=== PATIENT | female | born 1980 | race Caucasian/White ===

== ENCOUNTER → 2023-07-23 10:00 | Outpatient (REF) | payer OTHER, SELFPAY | LOC: EMG 10:00 | PROVIDERS: ATTENDING PHYSICIAN Orthopaedic Surgery; FAMILY PHYSICIAN Family Medicine | DX: R20.0 Anesthesia of skin (principal) | CPT/HCPCS: 95886; 95911 ==

== ENCOUNTER 2023-07-27 18:14 | Emergency (ER) | payer OTHER, SELFPAY ==
[2023-07-27 18:24] VITALS: BP 120/80
--- NOTE | 2023-07-27 18:49 | ED.GENMED ---
History of Present Illness
General
Chief Complaint: Musculo-Skeletal Complaint
Time Seen by Provider: 07/27/23 18:49
Travel History
Have you had any contact with someone who has COVID-19?: No
Do you have any symptoms of coronavirus? Fever > 100 degrees, chills, cough, shortness of breath, sore throat, loss of taste or smell, muscle aches, or headache?: No
History of Present Illness
History of Present Illness:
42-year-old female presents the emergency department for evaluation of progressive worsening right hand pain and numbness radiating to the mid forearm. She was treated as an outpatient with multiple courses of steroids which did improve symptoms
however due to worsening she followed up with hand surgery, has underwent MRI of her cervical spine which does show 'C5-C6 moderate disc osteophyte complex with a central disc protrusion causing flattening of the ventral spinal cord and overall
moderate central canal narrowing, C4-5 small right central disc protrusion effacing the ventral thecal sac and causing mild narrowing of the right aspect of the central canal, and a C6-C7 small central disc protrusion causing mild central canal
narrowing'. She underwent an MRI of the right hand today and does not yet have these results. She has been taking hydrocodone without pain relief. Additionally she underwent a nerve conduction study 4 days ago which showed minimal carpal tunnel
but was not felt to be an adequate explanation for her pain
Past History
Past History
ED Past Medical History: Other (Plasminogen activator inhibitor deficiency disorder, previous rhinoplasty with heavy bleeding)
Social History
Tobacco: Non-smoker
Alcohol: None
Family History
Family History: Negative Diabetes, Hypertension or CAD
Review of Systems
Review of Systems
Allergies reviewed?: Yes
All Other Systems: ROS reviewed and negative except as documented in HPI and ROS
Phy Exam
Physical Exam
Physical Exam:
GEN: Well appearing, NAD, WDWN
HEENT: Oral mucosa moist, no scleral icterus
Cardiac: Regular rate
Lung: No respiratory distress, no tachypnea
MSK: No gross deformity or injuries. Limited right wrist range of motion secondary to pain
Skin: Good color, no pallor or jaundice, no rashes
Neuro: AO x3, moves all extremities freely
Psych: Calm, cooperative
Course
Orders/Labs/Results
Orders:
Orders
07/27/23 19:03
Gabapentin [Neurontin] 300 mg PO NOW STA
Ketorolac [Toradol] 30 mg IM NOW STA
Oxycodone [Roxicodone] 5 mg PO NOW STA
Vital Signs
Initial and Last Documented VS:
Initial Vital Signs
Temp Pulse Resp BP Pulse Ox
98.3 F 112 20 120/80 98
07/27/23 18:24 07/27/23 18:24 07/27/23 18:24 07/27/23 18:24 07/27/23 18:24
Last Documented Vital Signs
Temp Pulse Resp BP Pulse Ox
98.3 F 112 20 120/80 98
07/27/23 18:24 07/27/23 18:24 07/27/23 18:24 07/27/23 18:24 07/27/23 18:24
MDM/Problems Addressed
MDM/Problems Addressed:
Patient's right hand MRI not resulted by [facility] just yet. I suspect her symptoms are due to cervical spine disease given her unremarkable EMG. Supportive care medications prescribed, encouraged ongoing orthopedic evaluation to discuss
any further treatment for the C-spine
*Critical Care Note
Total Time (30-74mins, 75-104mins- exclusive of procedures): Not Applicable
ED Attending Note
-
Portions of this chart may have been created with voice recognition software.� Occasional wrong word or��sound alike� substitutions may have occurred due to the inherent limitations of voice recognition software.
Discharge Plan
Departure
Patient Disposition: Home (Routine Discharge)
Date of Disposition: 07/27/23
Time of Disposition: 19:22
Patient with high blood pressure during this ER visit?: No
Discharge Problem:
Cervical radiculopathy
Instructions: Radiculopathy (DC)
Prescriptions:
New
gabapentin 300 mg capsule
300 mg PO TID Qty: 30 0RF
diclofenac sodium 75 mg tablet,delayed release (DR/EC)
75 mg PO BID PRN (Reason: Pain) Qty: 30 0RF
oxycodone 5 mg tablet
5 mg PO Q8H PRN (Reason: Pain) Qty: 8 0RF
Referrals:
Mayco Rodriges MD [Family Provider] -
Interventions
Interventions:
*Risk Screen - Suicide Last Done: 07/27/23 18:24
*General Assessment Last Done: 07/27/23 18:24
*Neglect/Abuse Screening Last Done: 07/27/23 18:56
ED- Fall Risk Assessment Last Done: 07/27/23 18:56
*Nursing Disposition Last Done: 07/27/23 19:34
ED-Musculoskeletal Assessment Last Done: 07/27/23 18:56
Discharge Date and Time
Discharge Date/Time: 07/27/23 19:35
[2023-07-27] MEDS: NEURONTIN 300 MG PO (19:20)
[2023-07-27] MEDS: ROXICODONE 5 MG PO (19:20)
[2023-07-27] MEDS: TORADOL 30 MG IM (19:22)
== END 2023-07-27 19:35 | disposition home or self-care (01) ==
LOC: EMR 18:14
PROVIDERS: EMERGENCY PHYSICIAN Emergency Medicine; FAMILY PHYSICIAN Family Medicine
DX: M54.12 Radiculopathy, cervical region (principal)
CPT/HCPCS: 99282

== ENCOUNTER 2023-07-28 05:33 | Emergency (ER) | payer OTHER, SELFPAY ==
[2023-07-28 05:36] VITALS: BP 130/96
--- NOTE | 2023-07-28 05:56 | EDRN ---
hands. Tonight she was on the toilet and her feet went numb and when she tried to get up she couldn't move. Pt was holding onto the towel rack and it broke and she hit her R side of her back on the tub and twisted her R ankle. No LOC. Pt has pain
management for fusion L4-S1. Pt tearful. Pt states that she can not take a deep breath in.
--- NOTE | 2023-07-28 07:15 | ED.GENMED ---
History of Present Illness
General
Chief Complaint: Musculo-Skeletal Complaint
Source: patient
Time Seen by Provider: 07/28/23 06:58
Travel History
Have you had any contact with someone who has COVID-19?: No
Do you have any symptoms of coronavirus? Fever > 100 degrees, chills, cough, shortness of breath, sore throat, loss of taste or smell, muscle aches, or headache?: No
History of Present Illness
History of Present Illness:
42-year-old female presenting to the emergency department for evaluation after she got up from her sleep around 3 AM to go to the bathroom, felt lightheaded and as if her bilateral lower extremities had tingling all over, she attempted to grab onto
a towel rack but this fell causing her to fall back into the corner of a tub injuring her right lateral ribs as well as her right ankle. Patient states that her right thoracic region is what is causing her the most pain. She notes associated right
upper extremity paresthesia and pain but that this is a chronic issue and she was here in this emergency department yesterday evening for that right upper extremity pain. Patient reportedly had an outpatient MRI done at [facility] which
showed complications at C5 and C6 as well as C4 and C5. Patient sees pain management for which she takes tramadol as well as hydrocodone. She states that she has not taken anything for pain since being in the emergency department last night.
There was no reported head injury, loss consciousness, vomiting, visual changes or any other concerns. Patient does note increased pain ambulating on her right ankle.
Past History
Past History
ED Past Medical History: Other (Plasminogen activator inhibitor deficiency disorder, previous rhinoplasty with heavy bleeding)
ED Past Surgical History: Other
Social History
Tobacco: Non-smoker
Alcohol: None
Drug: None
Personal: Single
Living: with family
Family History
Family History: Negative Diabetes, Hypertension or CAD
Review of Systems
Review of Systems
All Other Systems: ROS reviewed and negative except as documented in HPI and ROS
Phy Exam
Physical Exam
Physical Exam:
GENERAL: Alert , , Continuously wincing in pain, needs assistance with movement, appears uncomfortable
Head: Normocephalic atraumatic
EYE: conjunctiva clear
NECK: Supple
ENT: o/p clr, mmm.
CARDIAC: Regular rate and rhythm, No murmur
LUNGS: Clear breath sounds bilaterally, no acute respiratory distress, no wheezes/rales/rhonchi
Chest wall: Diffuse right-sided tenderness with no focality. There are no signs of trauma, ecchymosis, abrasions, lacerations or flail chest
NEUROLOGICAL: Alert and oriented
SKIN: Warm and dry, skin intact.
MUSCULOSKELETAL: Right lower extremity: No obvious deformity, erythema, edema, ecchymosis, abrasions or lacerations. Patient complaining of diffuse tenderness to the distal ankle. Calcaneal tendon without laxity. Easily palpable pedal and tibial
pulse. Cap refill less than 2 seconds. Sensation grossly intact to light touch.
PSYCH: Normal and appropriate interaction.
Scores
Heart Failure Risk
Heart Failure Risk Score: Not Applicable
Heart Score for Chest Pain Patients
STEMI patient?: Not applicable
Withdrawal Assessment of Alcohol
Withdrawal Assessment Completed?: Not applicable
Course
Orders/Labs/Results
Orders:
Orders
07/28/23 07:13
Ketorolac [Toradol] 60 mg IM NOW STA
Oxycodone [Roxicodone] 5 mg PO NOW STA
CR Ankle - Right Min 3 Views * Urgent
Comment:
Reason For Exam: fall, pain
CR Ribs-right 3 Vw W/pa Chest* Urgent
Comment:
Reason For Exam: fall, posterolateral rib injury
Vital Signs
Initial and Last Documented VS:
Initial Vital Signs
Temp Pulse Resp BP Pulse Ox
97.7 F 114 30 130/96 100
07/28/23 05:36 07/28/23 05:36 02/27/24 05:36 07/28/23 05:36 07/28/23 05:36
Last Documented Vital Signs
Temp Pulse Resp BP Pulse Ox
97.7 F 114 30 116/72 97
07/28/23 05:36 07/28/23 05:36 07/28/23 05:36 07/28/23 08:00 07/28/23 08:15
MDM/Problems Addressed
Differential Diagnosis Includes:
Rib fracture, rib contusion, pneumothorax, visceral injury, exacerbation of patient's chronic pain
MDM/Problems Addressed:
42-year-old female presenting emergency department for evaluation after an accidental fall with injury to the right rib area and right ankle. Patient seen yesterday for right upper extremity pain that was thought to be related to radiculopathy from
issues stemming from a C4-C6 complication. Patient was also noting pain to this area today. Will obtain x-ray of the ribs on the right as well as an x-ray of the ankle. I explained to patient that her right upper extremity symptoms are stemming
from a longstanding pain control issue and while she is in pain from this today we would be unable to treat this any further here and she would need to continue following with her pain management or member service specialist for further evaluation.
Patient[place]MP were reviewed which reveal she is getting monthly scripts for pain control from her pain management physician, she received a further prescription from orthopedics a week ago and received a prescription for oxycodone from here last
night. Patient's remaining treatment pending her imaging studies. I do anticipate discharge home and continued outpatient management.
*Radiology
Radiology exam reviewed: preliminary read by ED provider (No acute fracture within the ribs or ankle identified)
*Pulse Oximetry
Patient hypoxic: no
*Critical Care Note
Total Time (30-74mins, 75-104mins- exclusive of procedures): Not Applicable
ED Attending Note
-
Portions of this chart may have been created with voice recognition software.� Occasional wrong word or��sound alike� substitutions may have occurred due to the inherent limitations of voice recognition software.
Discharge Plan
Departure
Patient Disposition: Home (Routine Discharge)
Date of Disposition: 07/28/23
Time of Disposition: 08:21
Patient with high blood pressure during this ER visit?: Yes
Discharge Problem:
Accidental fall, Contusion of rib on right side, Ankle pain, right
Instructions: Bruised Rib (DC)
Prescriptions:
No Action
gabapentin 300 mg capsule
300 mg PO TID Qty: 30 0RF
diclofenac sodium 75 mg tablet,delayed release (DR/EC)
75 mg PO BID PRN (Reason: Pain) Qty: 30 0RF
oxycodone 5 mg tablet
5 mg PO Q8H PRN (Reason: Pain) Qty: 8 0RF
Referrals:
Mayco Rodriges MD [Family Provider] -
Interventions
Interventions:
*Risk Screen - Suicide Last Done: 07/28/23 05:36
*General Assessment Last Done: 07/28/23 05:49
*Neglect/Abuse Screening Last Done: 07/28/23 05:36
ED- Fall Risk Assessment Last Done: 07/28/23 05:49
*ED COVID-19 Vaccine History Last Done: 07/28/23 05:49
*Nursing Disposition Last Done: 07/28/23 09:15
ED-Musculoskeletal Assessment Last Done: 07/28/23 05:49
ED- Neurological Assessment Last Done: 07/28/23 05:49
ED-Skin Assessment Last Done: 07/28/23 05:49
Discharge Date and Time
Discharge Date/Time: 07/28/23 09:15
[2023-07-28 07:40] VITALS: BMI 32.9
[2023-07-28] MEDS: ROXICODONE 5 MG PO (07:41)
[2023-07-28] MEDS: TORADOL 60 MG IM (07:42)
[2023-07-28 07:46] VITALS: BP 107/68
[2023-07-28 08:00] VITALS: BP 116/72
== END 2023-07-28 09:15 | disposition home or self-care (01) ==
LOC: EMR 05:33
PROVIDERS: EMERGENCY PHYSICIAN Student in an Organized Health Care Education/Training Program; FAMILY PHYSICIAN Family Medicine
DX: S20.211A Contusion of right front wall of thorax, initial encounter (principal); M25.571 Pain in right ankle and joints of right foot; W19.XXXA Unspecified fall, initial encounter
CPT/HCPCS: 99284; 96372; 71101; 73610

== ENCOUNTER 2023-08-04 06:29 | Day surgery (SDC) | payer OTHER, SELFPAY ==
[2023-08-04] VITALS (11 sets, daily range): BP systolic 97–117; BP diastolic 54–72; BMI 33.0
[2023-08-04] MEDS: TYLENOL 1000 MG PO (08:38)
[2023-08-04] MEDS: NORMOSOL-R 1000 IV (08:38)
[2023-08-04] MEDS: CELEBREX 200 MG PO (08:39)
[2023-08-04] MEDS: DILAUDID 0.5 MG IV ×3 (10:51→11:14)
[2023-08-04] MEDS: ROXICODONE 5 MG PO (12:31)
== END 2023-08-04 13:00 | disposition home or self-care (01) ==
LOC: SDS 06:29
PROVIDERS: ATTENDING PHYSICIAN Orthopaedic Surgery
DX: M65.831 Other synovitis and tenosynovitis, right forearm (principal); G56.01 Carpal tunnel syndrome, right upper limb
CPT/HCPCS: 25101; 64721; 25115; 88304